=== PATIENT | female | born 1945 | race Caucasian/White ===

== ENCOUNTER 2021-10-13 17:59 | Emergency (ER) | payer MEDICARE, BC ==
[~2021-10-13] VITALS: Ht 149.9 cm; Wt 75.0 kg
[2021-10-13] MEDS ORDERED: HYDROcodone/acetaminophen 5mg/325mg tablet PO ONE (19:55)
[2021-10-13] MEDS ORDERED: ketorolac trometh inj. 60 MG/2 ML VIAL IM ONE (19:55)
[2021-10-13] MEDS ORDERED: ondansetron 4mg rapidly disintigrating tab PO ONE (19:55)
[2021-10-13 20:41] VITALS: BP 155/66
== END 2021-10-13 20:43 | disposition home or self-care (01) ==
LOC: ER 18:00
DX: S52.502A Unspecified fracture of the lower end of left radius, initial encounter for closed fracture (principal); M25.512 Pain in left shoulder; Z88.2 Allergy status to sulfonamides; W18.09XA Striking against other object with subsequent fall, initial encounter; Y93.01 Activity, walking, marching and hiking; Y92.89 Other specified places as the place of occurrence of the external cause; Y99.8 Other external cause status
CPT/HCPCS: 29125; 73030; 73110; 96372; 99284; J1885